=== PATIENT | male | born 1995 ===

== ENCOUNTER 2017-03-08 07:21 | Day surgery (SDC) | payer MEDICAID ==
[2017-01-26 14:10] VITALS: BMI 37.5
[2017-03-08] MEDS ORDERED: Lidocaine 1% Inj (20ml) ONE (10:31)
[2017-03-08] MEDS ORDERED: Bupivacaine/Epi 0.25%-1:200,000 10 ml PF inj IJ ONE (10:31)
[2017-03-08] MEDS ORDERED: ceFAZolin 1 gm FROZEN Premix 0 ML IVPB ONE (10:32)
[2017-03-08] MEDS ORDERED: ceFAZolin 1 gm FROZEN Premix 100 ML IVPB ONE (10:33)
[2017-03-08] MEDS ORDERED: Lactated Ringer's 1,000 ML IV ONE (10:35)
[2017-03-08] MEDS ORDERED: Midazolam 2 MG/2 ML VIAL ONE (10:38)
[2017-03-08] MEDS ORDERED: Propofol 10 mg/ml Inj (20 ML) ONE (10:39)
[2017-03-08] MEDS ORDERED: Oxycodone/Acetaminophen 5/325 mg Tab PO PRN (11:28)
[2017-03-08] MEDS ORDERED: HYDROmorphone 0.5 mg/0.5 ml ISec IVP PRN (11:29)
--- NOTE | 2017-03-08 11:33 | PCM.SURG1 ---
Surgeon's Initial Post Op Note - Surgeon's Notes Surgeon: Dr. Smith Aircraft Engine Mechanic: Dr. Mathew PGY1, Ben Tran Type of Anesthesia: General LMA Pre-Operative Diagnosis: R thigh lipoma Operative Findings: see dictation Post-Operative Diagnosis: R thigh lesion Operation Performed: excision of Right thigh lesion Specimen/Specimens Removed: Right thigh lesion Estimated Blood Loss: EBL {In ML}: 10 Blood Products Given: N/A Drains Used: No Drains Post-Op Condition: Good Date of Surgery/Procedure: 03/08/17 Time of Surgery/Procedure: 11:00
[2017-03-08 12:49] VITALS: BP 170/65; PULSE 71; RESP 18; TEMP 97; O2SAT 100
--- NOTE | 2017-03-08 13:33 | OP ---
PROCEDURE DATE: 03/08/2017 PREOPERATIVE DIAGNOSIS: Right medial lower thigh lipoma, approximately 4 cm x 3 cm size. POSTOPERATIVE DIAGNOSES: Right medial lower thigh lipoma, approximately 4 cm x 3 cm size. PROCEDURES DONE: 1. Excision of lipoma of right lower medial thigh, 4 cm x 3 cm size. 2. Layered closure of the wounds, 5 cm x 2 cm size. SURGEON: Augie Smith MD ASE MASTER MECHANIC: Shadia Mathew, PGY-1 resident ANESTHESIA: Local anesthesia plus general anesthesia. ESTIMATED BLOOD LOSS: Around 10 mL. DRAINS: None. PATHOLOGY: The lipoma of the lower medial thigh was sent for pathology. COMPLICATIONS: None. INTRAOPERATIVE FINDINGS: The patient had approximately 4 cm x 3 cm right lower medial thigh lipoma. INTRAOPERATIVE STEPS: This 21-year-old male who was diagnosed with a lipoma of the right lower medial thigh and patient was consented for the excision, brought to the OR, placed supine on the operating table. The right thigh was prepped and draped and elliptical 5 cm incision was made. After incising skin and subcutaneous tissue, upper and lower flaps were created and lipoma appeared to be large in subcutaneous tissue and the lipoma was completely excised and it was set on the table for the pathology. Wound was irrigated and wound was closed in multiple layers, the subcutaneous with 2-0 Vicryl, another layer of the subQ with a 2-0 Vicryl, skin with a 4-0 Monocryl and skin with 3-0 nylon interrupted suture and dry sterile dressing was applied. The patient tolerated the procedure well. Count of instruments and gauze was correct. There was no apparent complication. The patient was reversed from anesthesia, sent to the postanesthesia care unit in stable condition. Augie Smith MD cc: [id number] TT: 03/08/2017 13:32:36 en MTDD
== END 2017-03-08 12:50 | disposition home or self-care (01) ==
LOC: C.SDS 07:21
PROVIDERS: ATTEND Surgery Surgical Critical Care
DX: D23.71 Other benign neoplasm of skin of right lower limb, including hip (principal); Z83.3 Family history of diabetes mellitus
CPT/HCPCS: 11404; 12032; 88305; J0690; J2001; J2250; J2704; J3010; J7120